=== PATIENT | female | born 1975 | race Caucasian/White ===

== ENCOUNTER 2021-12-05 10:36 | Outpatient (CLI) | payer BC, OTHER, SELFPAY ==
[2021-12-05 10:56] LABS: Basophils Absolute Auto 0.02 K/uL (0.00-0.30); Basophils Percent Auto 0.2 % (0.0-3.0); Eosinophils Absolute Auto 0.18 K/uL (0.00-0.50); Eosinophils Percent Auto 2.2 % (0.0-7.0); Hematocrit 37.3 % (33.0-51.0); Hemoglobin* 12.3 gm/dL (12.0-16.0); Lymphocytes Absolute Auto 2.34 K/uL (0.90-2.90); Lymphocytes Percent Auto 28.4 % (20-44); Mean Corpuscular HGB Conc 33 gm/dL (32-36); Mean Corpuscular Hemoglobin 30 pg (26-34); Mean Corpuscular Volume 90 fL (80-100); Monocytes Absolute Auto 0.48 K/UL (0.00-0.90); Monocytes Percent Auto 5.8 % (0.0-11.0); Neutrophils Absolute Auto 5.23 K/uL (1.7-7.0); Neutrophils Percent Auto 63.4 % (42.0-72.0); Platelet Count* 410 K/uL (140-440); Red Blood Count 4.14 m/uL (4.00-5.20); White Blood Count* 8.25 K/uL (4.50-11.00)
[2021-12-05 10:58] LABS: Slide Review Reflex No
[2021-12-05 16:49] LABS: Chloride* 103 mmol/L (96-114)
[2021-12-05 16:50] LABS: Potassium* 3.9 mmol/L (3.6-5.1); Sodium* 137 mmol/L (135-149)
[2021-12-05 16:52] LABS: Carbon Dioxide* 26 mmol/L (20-32); Creatinine* 0.7 mg/dL (0.5-1.5); Estimated Glomerular Filt Rate 109 ml/min
[2021-12-05 16:53] LABS: Blood Urea Nitrogen* 19 mg/dL (5-24); Calcium* 10.3 mg/dL (8.4-10.6); Glucose* 98 mg/dL (60-115)
== END 2021-12-05 10:37 | disposition home or self-care (01) ==
LOC: LKVREF 10:37
PROVIDERS: PCP Physician Assistant Medical; Visit Provider Family Medicine
DX: I10 Essential (primary) hypertension (principal)
CPT/HCPCS: 80048; 85025

== ENCOUNTER 2022-04-06 06:15 | Outpatient (CLI) | payer BC, OTHER, SELFPAY | END 2022-04-06 06:16 | disposition home or self-care (01) | PROVIDERS: PCP Physician Assistant Medical; Visit Provider Internal Medicine | DX: Z12.11 Encounter for screening for malignant neoplasm of colon (principal) | CPT/HCPCS: 45378; J2250; J3010 ==

== ENCOUNTER 2022-06-13 14:55 | Outpatient (CLI) | payer BC, OTHER, SELFPAY ==
--- NOTE | 2022-06-13 15:20 | CRLHL7_ITS ---
For Patients: As a result of the Century Cures Act, medical imaging exams and procedure reports are released immediately into your electronic medical record. You may view this report before your referring provider. If you have questions, please contact your health care provider. BILATERAL SCREENING MAMMOGRAM WITH COMPUTER-AIDED DETECTION AND TOMOSYNTHESIS TECHNIQUE: CC and MLO views were obtained. These mammographic images have been obtained using full-field digital technique. These mammographic images were interpreted with the benefit of computer-aided detection. Breast Tomosynthesis was used in this interpretation. COMPARISON FILM: 01/05/21, 12/24/19, 12/17/19. FINDINGS: There are scattered areas of fibroglandular density IMPRESSION: There is no radiographic evidence for malignancy. ASSESSMENT: BI-RADS Category 1: Negative RECOMMENDATION: Routine screening mammogram in 1 year. A lay language report of this examination will be provided to the patient. Vivek Desir M.D. Diagnostic Radiologist [email or web address] REESE/Dictated by: Vivek Desir MD @ 06/14/2022 1:36:00 PM (Electronically Signed)
== END 2022-06-13 14:56 | disposition home or self-care (01) ==
LOC: MAMMO 14:56
PROVIDERS: Visit Provider Physician Assistant
DX: Z12.31 Encounter for screening mammogram for malignant neoplasm of breast (principal)
CPT/HCPCS: 77063; 77067

== ENCOUNTER 2022-12-14 07:58 | Outpatient (CLI) | payer BC, OTHER, SELFPAY | END 2022-12-14 07:59 | disposition home or self-care (01) | PROVIDERS: Visit Provider Family Medicine | DX: I10 Essential (primary) hypertension (principal); Z13.6 Encounter for screening for cardiovascular disorders | CPT/HCPCS: 80053; 80061 ==

== ENCOUNTER 2023-08-19 09:00 | Outpatient (RCR) | payer BC, OTHER, SELFPAY | END 2023-10-24 08:38 | disposition home or self-care (01) | PROVIDERS: PCP Family Medicine; Visit Provider Family Medicine | DX: M54.9 Dorsalgia, unspecified (principal); R53.1 Weakness; Z51.89 Encounter for other specified aftercare | CPT/HCPCS: 97110; 97140; 97161 ==

== ENCOUNTER 2023-12-12 09:45 | Outpatient (CLI) | payer BC, OTHER, SELFPAY ==
--- OUTSIDE RECORDS SUMMARY | 2023-12-12 09:48 | XMS_ITS | Clinical Summary ---
Author Organization [employer] [facility] Address [place], [place] [address] Care Team Providers Care Multimedia Manager Name Role Phone Health, Family Primary Care Provider Unavailabl e Allergies No known active allergies Medications Medication Sig Dispensed Refills Start Date End Date Status lisinopriL (PRINIVIL; ZESTRIL) 10 mg tablet Take 1 tablet by mouth once daily. 0 03/14/2020 Active levonorgestrel intrauterine device (MIRENA) 20 mcg/24 hours (5 yrs) 52 mg IUD Inject 1 Each intrauterine. Active Family History Medical History Relation Name Comments Heart Disease Maternal Grandmother Relation Name Status Comments Maternal Grandmother Social History Tobacco Use Types Packs/Day Years Used Date Smoking Tobacco: Never Smokeless Tobacco: Never Alcohol Use Standard Drinks/Week Comments Yes 0 (1 standard drink = 0.6 oz pur e alcohol) occ drink Social Connections Answer Date Recorded Frequency of Communication with Friends and Fami ly Not on file 05/06/2021 Financial Resource Strain Answer Date R ecorded Difficulty of Paying Living Expenses Not on file 05/06/2021 Difficulty of Paying Living Expenses Not on file 05/06/2021 Sex and Gender Information Value Date Recorded Sex Assigned at Not on file Gender Identity Not on file Sexual Orientation Not on file Obstetrics History Last Filed Vital Signs Vital Sign Reading Time Taken Comments Blood Pressure 138/96 04/14/2020 2:50 PM RADIOLOGY ASST Pulse 90 04/14/2020 2:50 PM RADIOLOGY ASST Temperature 36.1 ??C (97 ??F) 04/14/2020 2:50 PM RADIOLOGY ASST Respiratory Rate - - Oxygen Saturation 100% 04/14/2020 2:50 PM RADIOLOGY ASST Inhaled Oxygen Concentration - - Weight 71.8 kg (158 lb 6.4 oz) 04/14/2020 2:50 P M RADIOLOGY ASST Height 167.6 cm (5' 6) 04/14/2020 2:50 PM RADIOLOGY ASST Body Mass Index 25.57 04/14/2020 2:50 PM RADIOLOGY ASST Plan of Treatment Health Maintenance Due Date Last Done Comments Tdap 12/31/1987 Depression screening for age 12+ 1988 HIV for age 15-65 12/31/1991 Hepatitis C screening for ag e 18-79 1994 Tetanus booster 1996 BMI (ht and wt on same day) for age 18+ 04/14/2021 04/14/2020 Colonoscopy through age 75 2021 Lipids for age 45-75 2021 Mammogram for age 45-75 2021 COVID-19 vaccine series (2022- season) 2023 Influenza for age 9-49 01/05/2024 Pap test for age 21-65 01/14/2026 , 01/14/2023 Pneumococcal series for age 6-64 Aged Out No longer eligible b ased on patient's age to complete this topic Procedures Procedure Name Priority Date/Time Associated Diagnosis Comments HPV THIN PREP Routine 01/14/2023 9:30 AM CDT from Last 3 Months or Most Recently Relevant to Health Maintenance Results * HPV HIGH RISK (01/14/2023 9:30 AM CDT) TYPE 16 Negative Negative 01/16/2023 5:39 PM CDT [facility] TYPE 18 Negative Negative 01/16/2023 5:39 PM CDT [facility] TR[facility] LAB[facility]ATORY OTHER HIGH RISK TYPES Negative Negative 01/16/2023 5:39 PM CDT [facility]ORY Other (Cervical) 01/14/2023 9:30 AM CDT 01/15/2023 10:11 [facility] 01/16/2023 5:39 PM CDT HPV types 16, 18, 31, 33, 35, 39, 45, 51, 52, 56, 58, 59, 66 and 68 DNA were undetectable or below the pre-set threshold. Methodology: Josue Aretha 4800 HPV Test August Josy CONNER [facility]-CENTRAL LABORATORY [address] [place] [address], from Last 3 Months or Most Recently Relevant to Health Maintenance Care Teams Multimedia Manager Relationship Specialty Start Date End Date Health, Family PCP - General 12/19/12
--- OUTSIDE RECORDS SUMMARY | 2023-12-12 09:48 | XMS_ITS | Referral Summary ---
Author Organization [facility] Address [address] [place] [address] Care Team Providers Care Pilot Plant Operator Helper Name Role Phone Erickson Finney MD Primary Care Provider [phone] Social History Tobacco Use Types Packs/Day Years Used Date Smoking Tobacco: Never Assessed Adolescent Education Answer Date Record ed Getting School Help Needed Not on file 01/26 Sex and Gender Information Value Date Recorded Sex Assigned at Not on file Gender Identity Not on file Sexual Orientation Not on file Plan of Treatment Not on file Procedures Procedure Name Priority Date/Time Associated Diagnosis Comments MA SCREENING BILATERAL W/ JOÃO Routine 01/05/2021 10:19 AM CDT Visit for screening mammogram from Last 3 Months or Most Recently Relevant to Health Maintenance Results * MA Screen Bilateral w/João (01/05/2021 10:19 AM CDT) Anatomical Region Laterality Modality Breast Bilateral Mammography Narrative 01/05/2021 4:23 PM CDT BILATERAL FULL FIELD DIGITAL SCREENING MAMMOGRAM WITH TOMOSYNTHESIS Performed on: 01/05/21 Compared to: 12/24/2019, 12/17/2019, and 08/08/2017 Technique: ??This study was evaluated with the assistance of Computer-Aided Detection. ??Breast Tomosynthesis was used in interpretation. Findings: The breasts have scattered areas of fibroglandular density. ?? There is no radiographic evidence of malignancy. IMPRESSION: ACR BI-RADS Category 1: Negative RECOMMENDED FOLLOW-UP: Annual routine screening mammogram The results and recommendations of this examination will be communicated to the patient. Radiology Non-Fv Credentialed Provider I MG MAMMOGRAPHY ORDERABLES from Last 3 Months or Most Recently Relevant to Health Maintenance Care Teams Pilot Plant Operator Helper Relationship Specialty Start Date End Date Erickson Finney MD PCP - General Family Medicine 01/05/21
--- OUTSIDE RECORDS SUMMARY | 2023-12-12 09:48 | XMS_ITS | Clinical Summary ---
Author Organization [facility] Address [address] [place] [address] Care Team Providers Care Litharge Mill Operator Name Role Phone Erickson Finney MD Primary Care Provider [phone] Social History Tobacco Use Types Packs/Day Years Used Date Smoking Tobacco: Never Assessed Adolescent Education Answer Date Record ed Getting School Help Needed Not on file 01/26 Sex and Gender Information Value Date Recorded Sex Assigned at Not on file Gender Identity Not on file Sexual Orientation Not on file Plan of Treatment Health Maintenance Due Date Last Done Comments ADVANCE CARE PLANNING 1976 ANNUAL REVIEW OF HM ORDERS 1976 CT COLONOGRAPHY 1976 FIT 1976 FLEX SIG 1976 GLUCOSE 1976 YEARLY PREVENTIVE VISIT 1976 sDNA (Cologuard) 1976 COLONOSCOPY 1986 COLORECTAL CANCER SCREENING 1986 HIV SCREENING 12/31/1991 HEPATITIS C SCREENING 1994 HEPATITIS B IMMUNIZATION (1 of 3 - 19+ 3-dose series) 12/31/1995 PAP 1997 LIPID 2016 DTAP/TDAP/TD IMMUNIZATION (1 - Tdap) 12/09/2018 12/08/2018 COVID-19 Vaccine (3 - 2022- season) 2023 08/26/2020, 08/06/2020 MAMMO SCREENING 01/05/2023 01/05/2021, 12/05, 12/17/2019, Additional history exists PHQ-2 (once per calendar year) 2023 INFLUENZA VACCINE (#1) 2024 , 03/05/2019, 03/18/2012, Additional history exists HPV IMMUNIZATION Aged Out No longer e ligible based on patient's age to complete this topic IPV IMMUNIZATION Aged Out No longer e ligible based on patient's age to complete this topic MENINGITIS IMMUNIZATION Aged Out No l onger eligible based on patient's age to complete this topic Pneumococcal Vaccine: Pediatrics (0 to 5 Years) and At-Risk Patients (6 to 64 Years) Aged Out No longer eligible based on patient's age to complete this topic RSV MONOCLONAL ANTIBODY Aged Out No l onger eligible based on patient's age to complete this topic [...] Recently Relevant to Health Maintenance Care Teams Litharge Mill Operator Relationship Specialty Start Date End Date Erickosn Finney MD PCP - General Family Medicine 01/05/21
--- OUTSIDE RECORDS SUMMARY | 2023-12-12 09:48 | XMS_ITS | Clinical Summary ---
Author Organization [facility] Address [address] [place] [address] Phone [email or web address] Care Team Providers Care Board Mill Supervisor Name Role Phone Unavailable Primary Care Provider Unavailabl e Encounters Date Type Department Care Team Description 12/04/2023 Claims Summary [facility] [address] [place] [address] Provider, Claims Summary MD Salo from Last 3 Months Social History Tobacco Use Types Packs/Day Years Used Date Smoking Tobacco: Never Assessed Sex and Gender Information Value Date Recorded Sex Assigned at Not on file Gender Identity Not on file Sexual Orientation Not on file Plan of Treatment Not on file
--- OUTSIDE RECORDS SUMMARY | 2023-12-12 09:48 | XMS_ITS | Clinical Summary ---
Author Organization [facility] Address [address], [place] [address] Care Team Providers Care Coil Winder Repair Name Role Phone Pcp, Pt Declines Primary Care Provider [phone] Source Comments You are receiving this document as you are listed as the primary care provider,follow-up provider, or the patient has been referred to you for consultation.This is in compliance with the Medicare and[facility] EHR Incentive Program,which states Providers who transition their patient to another setting of careor provider of care or refers their patient to another provider of care shouldprovide summary care record for each transition of care or referral. [facility] Allergies No known active allergies Medications Medication Sig Dispensed Refills Start Date End Date Status lisinopril (ZESTRIL) 5 MG tablet Take 10 mg by mouth daily. 3 07/31/2016 Active levonorgestrel (MIRENA) 20 MCG/24HR IUD 1 Each by Intrauterine route once. Active minocycline (MINOCIN) 50 MG capsuleIndications :Perioral dermatitis Take one capsule twice per day for 14 days. 28 Capsule 5 08/02/2021 Active metroNIDAZOLE (METROCREAM) 0.75 % creamIndications:P erioral dermatitis Apply to the face twice per day. 45 g 08/02/2021 Active Active Problems No known active problems Social History Tobacco Use Types Packs/Day Years Used Date Smoking Tobacco: Never Smokeless Tobacco: Never Sex and Gender Information Value Date Recorded Sex Assigned at Not on file Gender Identity Not on file Sexual Orientation Not on file Last Filed Vital Signs Vital Sign Reading Time Taken Comments Blood Pressure 147/91 10/31/2018 11:10 AM CDT Pulse 87 10/31/2018 11:10 AM CDT Temperature - - Respiratory Rate - - Oxygen Saturation - - Inhaled Oxygen Concentration - - Weight - - Height - - Body Mass Index - - Plan of Treatment Health Maintenance Due Date Last Done Comments Cervical Cancer Screening Due 1976 Colon Cancer Screening Plan Due 1976 Hep C Screening (Preventive Services) 1976 Mammogram 1976 HIV Screening (Preventive Services) 1992 Adult Preventive Visit 1994 DTaP/Tdap/Td (1 - Tdap) 12/31/1995 HepB (1) 12/31/1995 Cholesterol 2021 COVID-19 Vaccine (1 - 2022-2 4 season) 2023 Influenza (#1) 2024 01/05/2020, 03/18/2012, 02/12/2011 Zoster/Shingles (1 of 2) 2026 HepA Aged Out No longer eligi ble based on patient's age to complete this topic Hib Aged Out No longer eligi ble based on patient's age to complete this topic IPV (Polio) Aged Out No longer eligi ble based on patient's age to complete this topic MCV4 Aged Out No longer eligi ble based on patient's age to complete this topic Pneumococcal Aged Out No longer eligi ble based on patient's age to complete this topic Care Teams Coil Winder Repair Relationship Specialty Start Date End Date Pcp, [place] [address] PCP - General 05/31/15
--- OUTSIDE RECORDS SUMMARY | 2023-12-12 09:48 | XMS_ITS | Encounter Summary ---
Author Organization [facility] Address [address] [place] [address] Phone [email or web address] [email or web address] Care Team Providers Care Senior Buyer Planner Name Role Phone Unavailable Primary Care Provider Unavailabl e Encounter Details Date Type Department Care Team (Late st Contact Info) Description 12/04/2023 Claims Summary [facility] [address] [place] [address] Provider, Claims Summary External, [address] [place] [address] Social History Tobacco Use Types Packs/Day Years Used Date Smoking Tobacco: Never Assessed Sex and Gender Information Value Date Recorded Sex Assigned at Not on file Gender Identity Not on file Sexual Orientation Not on file documented as of this encounter Plan of Treatment Not on file documented as of this encounter Visit Diagnoses Not on filedocumented in this encounter
== END 2023-12-12 09:46 | disposition home or self-care (01) ==
PROVIDERS: PCP Family Medicine; Visit Provider Family Medicine
DX: I10 Essential (primary) hypertension (principal); E78.00 Pure hypercholesterolemia, unspecified
CPT/HCPCS: 80053; 80061

== ENCOUNTER 2023-12-12 14:50 | Outpatient (CLI) | payer BC, OTHER, SELFPAY ==
--- OUTSIDE RECORDS SUMMARY | 2023-12-12 14:53 | XMS_ITS | Clinical Summary ---
Author Organization [facility] Address [address] [place] [address] Phone [email or web address] [email or web address] Care Team Providers Care Social Welfare Administrator Name Role Phone Unavailable Primary Care Provider Unavailabl e Encounters Date Type Department Care Team Description 12/04/2023 Claims Summary [facility] [address] [place] [address] Provider, Claims Summary MD Salo from Last 3 Months Social History Tobacco Use Types Packs/Day Years Used Date Smoking Tobacco: Never Assessed Sex and Gender Information Value Date Recorded Sex Assigned at Not on file Gender Identity Not on file Sexual Orientation Not on file Plan of Treatment Not on file
--- OUTSIDE RECORDS SUMMARY | 2023-12-12 14:53 | XMS_ITS | Clinical Summary ---
Author Organization [facility] Address [address] [place] [address] Care Team Providers Care Cna Caregiver Name Role Phone Erickson Finney MD Primary Care Provider [phone] Social History Tobacco Use Types Packs/Day Years [...] Recently Relevant to Health Maintenance Care Teams Cna Caregiver Relationship Specialty Start Date End Date Erickson Finney MD PCP - General Family Medicine 01/05/21
--- OUTSIDE RECORDS SUMMARY | 2023-12-12 14:53 | XMS_ITS | Encounter Summary ---
Author Organization [facility] Address [address] [place] [address] Phone [email or web address] [email or web address] Care Team Providers Care Spd Tech Name Role Phone Unavailable Primary Care Provider Unavailabl e Encounter Details Date Type Department Care Team (Late st Contact Info) Description 12/04/2023 Claims Summary [facility] [address] [place] [address] Provider, Claims Summary External, [address] [place] [address] Social History Tobacco Use Types Packs/Day [...]
--- OUTSIDE RECORDS SUMMARY | 2023-12-12 14:53 | XMS_ITS | Clinical Summary ---
Author Organization [facility] Address [address], [place] [address] Care Team Providers Care Chief Deputy Clerk/Bailiff Name Role Phone Pcp, Pt Declines Primary Care Provider Source Comments You are receiving this document as you are listed as the primary care provider,follow-up provider, or the patient has been referred to you for consultation.This is in compliance with the Medicare and[facility] EHR Incentive Program,which states Providers who transition their patient to another setting of careor provider of care or refers their patient to another provider of care shouldprovide summary care record for each transition of care or referral. [facility] Allergies No known active allergies Medications [...] age to complete this topic Care Teams Chief Deputy Clerk/Bailiff Relationship Specialty Start Date End Date Pcp, [place] [address] PCP - General 05/31/15
--- OUTSIDE RECORDS SUMMARY | 2023-12-12 14:53 | XMS_ITS | Referral Summary ---
Author Organization [facility] Address [address] [place] [address] Care Team Providers Care Adobe Maker Name Role Phone Erickson Finney MD Primary Care Provider [phone] Social History Tobacco Use Types Packs/Day Years [...] Recently Relevant to Health Maintenance Care Teams Adobe Maker Relationship Specialty Start Date End Date Erickson Finney MD PCP - General Family Medicine 01/05/21
--- OUTSIDE RECORDS SUMMARY | 2023-12-12 14:53 | XMS_ITS | Clinical Summary ---
Author Organization [employer] [facility] Address [place], [place] [address] Care Team Providers Care Manager Knowledge Name Role Phone Health, Family Primary Care [...] Comments Blood Pressure 138/96 04/14/2020 2:50 PM DETAILER FURNITURE Pulse 90 04/14/2020 2:50 PM DETAILER FURNITURE Temperature 36.1 ??C (97 ??F) 04/14/2020 2:50 PM DETAILER FURNITURE Respiratory Rate - - Oxygen Saturation 100% 04/14/2020 2:50 PM DETAILER FURNITURE Inhaled Oxygen Concentration - - Weight 71.8 kg (158 lb 6.4 oz) 04/14/2020 2:50 P M DETAILER FURNITURE Height 167.6 cm (5' 6) 04/14/2020 2:50 PM DETAILER FURNITURE Body Mass Index 25.57 04/14/2020 2:50 PM DETAILER FURNITURE Plan of Treatment Health Maintenance Due Date [...] 16 Negative Negative 01/16/2023 5:39 PM CDT [facility] TYPE 18 Negative Negative 01/16/2023 5:[address] [facility] TRAL LABORATORY OTHER HIGH RISK TYPES Negative Negative 01/16/2023 5:[address] [facility] TRAL LAB[facility]ATORY Other (Cervical) 01/14/2023 9:30 AM CDT 01/15/2023 10:11 AM [facility] 01/16/2023 5:39 PM CDT HPV types 16, 18, 31, 33, 35, 39, 45, 51, 52, 56, 58, 59, 66 and 68 DNA were undetectable or below the pre-set threshold. Methodology: Josue Aretha 4800 HPV Test August Josy [facility]NER MICROBIOLOGY [facility]-CENTRAL LABORATORY [address] [place] [address], from Last 3 Months or Most Recently Relevant to Health Maintenance Care Teams Manager Knowledge Relationship Specialty Start Date End Date Health, Family PCP - General 12/19/12
--- NOTE | 2023-12-12 15:20 | CRLHL7_ITS ---
For Patients: As a result of the Cures Act, medical imaging exams and procedure reports are released immediately into your electronic medical record. You may view this report before your referring provider. If you have questions, please contact your health care provider. BILATERAL SCREENING MAMMOGRAM WITH COMPUTER-AIDED DETECTION AND TOMOSYNTHESIS TECHNIQUE: CC and MLO views were obtained. These mammographic images have been obtained using full-field digital technique. These mammographic images were interpreted with the benefit of computer-aided detection. Breast Tomosynthesis was used in this interpretation. COMPARISON FILM: 09/10/22, 01/05/21, 12/17/19. FINDINGS: There are scattered areas of fibroglandular density IMPRESSION: There is no radiographic evidence for malignancy. ASSESSMENT: BI-RADS Category 1: Negative RECOMMENDATION: Routine screening mammogram in 1 year. A lay language report of this examination will be provided to the patient. Vivek Desir M.D. Diagnostic Radiologist [email or web address] STEVEN/mu / bM/Dictated by: Vivek Desir MD @ 12/13/2023 9:32:00 AM (Electronically Signed)
== END 2023-12-12 14:51 | disposition home or self-care (01) ==
LOC: MAMMO 14:51
PROVIDERS: PCP Family Medicine; Visit Provider Physician Assistant
DX: Z12.31 Encounter for screening mammogram for malignant neoplasm of breast (principal)
CPT/HCPCS: 77063; 77067

== ENCOUNTER 2024-03-17 07:58 | Outpatient (CLI) | payer BC, OTHER, SELFPAY ==
--- OUTSIDE RECORDS SUMMARY | 2024-03-19 12:17 | XMS_ITS | Encounter Summary ---
Author Organization [facility] Address [address] [place] [address] Phone [email or web address] [email or web address] Care Team Providers Care Wire Roller Name Role Phone Unavailable Primary Care Provider Unavailabl e Encounter Details Date Type Department Care Team (Late st Contact Info) Description 12/04/2023 Claims Summary [facility] [address] [place] [address] Provider, Claims Summary External, [address] [place] [address] Social History Tobacco Use Types Packs/Day Years Used Date Smoking Tobacco: Never Assessed Comments Unknown Sex and Gender Information Value Date Recorded Sex Assigned at Not on file Legal Sex Female 12:07 PM COMMERCIAL ACCOUNT MANAGER Gender Identity Not on file Sexual Orientation Not on file documented as of this encounter Plan of Treatment Not on file documented as of this encounter Visit Diagnoses Not on filedocumented in this encounter
--- OUTSIDE RECORDS SUMMARY | 2024-03-19 12:17 | XMS_ITS | Patient Health Record ---
Author Organization [facility] Address [address] [place] [address] Care Team Providers Care Replenishment Merchandising Associate Name Role Phone KarleeAdelaide encarnacion Primary Care Provider [phone] Allergies No Known Allergies Reason For Referral No Information Medications Medication SIG (Take, Route, Fr equency, Duration) Notes Start Date End Date Status Mirena (52 MG) Activ e Lisinopril 10 MG Orally Act bayron Social History Tobacco Use: Social History Observation Description Date Details (start date - stop date) Never Smoker NA - NA Tobacco Use/Smoking Question Answer Notes Are you a nonsmoker Problems Problem Type SNOMED Code ICD Code Onset Dates Problem Status W/U Status Risk Notes Problem Hyperlipidemia (88227495) Hyperlipidemia (272.2) 006 Active confirmed No medications required Problem Hypertension (16054384) Hypertension (401.1) Active confirmed Plan Of Treatment No Information Insurance Providers Payer Name Payer Address Payer Phone Subscriber Number Group Number Insured Name Patient Relationship to Insured Coverage Start Date Coverage End Date [employer]BS - (Client Bill) [address] [place] [address] [id number] Ghislaine Banegas Self - patient is the insured [facility] [address] [place], [place] [id number] Ghislaine Banegas Self - patient is the insured Medical (General) History Medical History History ICD Code hyperlipidemia hypertension Surgical History Surgery Date(Month/Year) cystectomy IUD insert; Mirena 08/08/2017
--- OUTSIDE RECORDS SUMMARY | 2024-03-19 12:17 | XMS_ITS | Clinical Summary ---
Author Organization [facility] [employer] Address [place], [place] [address] Care Team Providers Care Electronic Components Assembler Name Role Phone Health, Family Primary Care [...] Comments Blood Pressure 138/96 04/14/2020 2:50 PM MUCKER OPERATOR Pulse 90 04/14/2020 2:50 PM MUCKER OPERATOR Temperature 36.1 ??C (97 ??F) 04/14/2020 2:50 PM MUCKER OPERATOR Respiratory Rate - - Oxygen Saturation 100% 04/14/2020 2:50 PM MUCKER OPERATOR Inhaled Oxygen Concentration - - Weight 71.8 kg (158 lb 6.4 oz) 04/14/2020 2:50 P M MUCKER OPERATOR Height 167.6 cm (5' 6) 04/14/2020 2:50 PM MUCKER OPERATOR Body Mass Index 25.57 04/14/2020 2:50 PM MUCKER OPERATOR Plan of Treatment Health Maintenance Due Date [...] for age 45-75 2021 COVID-19 vaccine series (2023- season) 2024 Influenza for age 9-49 01/05/2024 Pap test for age 21-65 01/14/2026 , 01/14/2023 Pneumococcal series for age 6-64 Aged Out No longer eligible b ased on patient's age to complete this topic Procedures Procedure Name Priority Date/Time Associated Diagnosis Comments HPV HIGH RISK Routine 01/14/2023 9:30 AM CDT from Last 3 Months or Most Recently Relevant to Health Maintenance Results * HPV HIGH RISK (01/14/2023 9:30 AM CDT) TYPE 16 Negative Negative 01/16/2023 5:39 PM CDT [facility] TYPE 18 Negative Negative 01/16/2023 5:39 PM CDT [facility] OTHER HIGH RISK TYPES Negative Negative 01/16/2023 5:39 PM CDT [facility] Other (Cervical) 01/14/2023 9:30 AM CDT 01/15/2023 10:11 AM CDT [facility] - 01/16/2023 5:39 PM CDT HPV types 16, 18, 31, 33, 35, 39, 45, 51, 52, 56, 58, 59, 66 and 68 DNA were undetectable or below the pre-set threshold. Methodology: Josue Aretha 4800 HPV Test August Josy [facility]NER [facility]-CENTRAL LABORATORY [address] [place] [address], from Last 3 Months or Most Recently Relevant to Health Maintenance Care Teams Electronic Components Assembler Relationship Specialty Start Date End Date Health, Family PCP - General 12/19/12
--- OUTSIDE RECORDS SUMMARY | 2024-03-19 12:17 | XMS_ITS | Encounter Summary ---
Author Organization [facility] Address [address] [place] [address] Phone [email or web address] Care Team Providers Care Cocoa Milling Machine Operator Name Role Phone Unavailable Primary Care Provider Unavailabl e Encounter Details Date Type Department Care Team (Late st Contact Info) Description 02/13/2024 Claims Summary [facility] [address] [place] [address] Provider, Claims Summary External, [address] [place] [address] Social History Tobacco Use Types Packs/Day Years Used Date Smoking Tobacco: Never Assessed Comments Unknown Sex and Gender Information Value Date Recorded Sex Assigned at Not on file Legal Sex Female 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
--- OUTSIDE RECORDS SUMMARY | 2024-03-19 12:17 | XMS_ITS | Encounter Summary ---
Author Organization [facility] Address [address] [place] [address] Phone [email or web address] Care Team Providers Care Core Composer Machine Tender Name Role Phone Unavailable Primary Care Provider Unavailabl e Encounter Details Date Type Department Care Team (Late st Contact Info) Description 01/15/2024 Claims Summary [facility] [address] [place] [address] Provider, Claims Summary External, [address] [place] [address] Social History Tobacco Use Types Packs/Day Years Used Date Smoking Tobacco: Never Assessed Comments Unknown Sex and Gender Information Value Date Recorded Sex Assigned at Not on file Legal Sex Female 12:07 PM INCIDENT COORDINATOR Gender Identity Not on file Sexual Orientation Not on file documented as of this encounter Plan of Treatment Not on file documented as of this encounter Visit Diagnoses Not on filedocumented in this encounter
--- OUTSIDE RECORDS SUMMARY | 2024-03-19 12:17 | XMS_ITS | Clinical Summary ---
Author Organization [facility] Address [address] [place] [address] Care Team Providers Care Tip Cementer Name Role Phone Erickson Finney MD Primary Care Provider [phone] Social History Tobacco Use Types Packs/Day Years Used Date Smoking Tobacco: Never Assessed Adolescent Education Answer Date Record ed Getting School Help Needed Not on file 01/26 Comments Unknown Sex and Gender Information Value Date Recorded Sex Assigned at Not on file Legal Sex Female 8:42 AM CDT Gender Identity Not on file Sexual Orientation Not on file Plan of Treatment Not on file Insurance [facility] [employer] [facility] Care Teams Tip Cementer Relationship Specialty Start Date End Date Erickson Finney MD FOR[facility] N[facility]ED [facility] [address] [place] [address] PCP - General Family Medicine 01/05/21
--- OUTSIDE RECORDS SUMMARY | 2024-03-19 12:17 | XMS_ITS | Encounter Summary ---
Author Organization [facility] Address [address] [place] [address] Phone [email or web address] Care Team Providers Care Casino Shift Manager Name Role Phone Unavailable Primary Care Provider Unavailabl e Encounter Details Date Type Department Care Team (Late st Contact Info) Description 03/18/2024 Claims Summary [facility] [address] [place] [address] Provider, Claims Summary External, [address] [place] [address] Social History Tobacco Use Types Packs/Day Years Used Date Smoking Tobacco: Never Assessed Stress Answer Date Recorded Stress in your Life Not on file 03/14/2024 Dealing with Stress 3 03/14/2024 Comments Unknown Sex and Gender Information Value Date Recorded Sex Assigned at Not on file Legal Sex Female 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
--- OUTSIDE RECORDS SUMMARY | 2024-03-19 12:17 | XMS_ITS | Clinical Summary ---
Author Organization [facility] Address [address] [place] [address] Phone [email or web address] Care Team Providers Care Receiving Team Member Name Role Phone Unavailable Primary Care Provider Unavailabl e Encounters Date Type Department Care Team Description 03/18/2024 Claims Summary [facility] [address] [facility] [place] [address] Provider, Claims Summary MD Salo 02/13/2024 Claims Summary [facility] [address] 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
--- OUTSIDE RECORDS SUMMARY | 2024-03-19 12:17 | XMS_ITS | Clinical Summary ---
Author Organization [facility] Address [address], [place] [address] Care Team Providers Care Compressor Repairer Name Role Phone Pcp, Pt Declines Primary Care Provider [phone] Source Comments You are receiving this document as you are listed as the primary care provider,follow-up provider, or the patient has been referred to you for consultation.This is in compliance with the Medicare and[facility] EHR Incentive Program,which states Providers who transition their patient to another setting of careor provider of care or refers their patient to another provider of care shouldprovide summary care record for each transition of care or referral. [facility] Allergies No known active allergies Medications Medication [...] 12/31/1995 Cholesterol 2021 COVID-19 Vaccine (1 - 2023-2 5 season) 2024 Influenza (#1) 2024 01/05/2020, 03/18/2012, 02/12/2011 Zoster/Shingles (1 of 2) 2026 HepA Aged Out No longer eligi ble based on patient's age to complete this topic Hib Aged Out No longer eligi ble based on patient's age to complete this topic IPV (Polio) Aged Out No longer eligi ble based on patient's age to complete this topic RSV Aged Out No longer eligi ble based on patient's age to complete this topic MCV4 Aged Out No longer eligi ble based on patient's age to complete this topic Pneumococcal Aged Out No longer eligi ble based on patient's age to complete this topic Care Teams Compressor Repairer Relationship Specialty Start Date End Date Pcp, [place] [address] PCP - General 05/31/15
--- OUTSIDE RECORDS SUMMARY | 2024-03-19 12:17 | XMS_ITS | Referral Summary ---
Author Organization [facility] Address [address] [place] [address] Care Team Providers Care Machinist Automotive Name Role Phone Erickson Finney MD Primary Care Provider [phone] Social History Tobacco Use Types Packs/Day Years [...] Plan of Treatment Not on file Insurance [facility] [employer] [facility] Care Teams Machinist Automotive Relationship Specialty Start Date End Date Erickson Finney MD [facility] [address] [place] [address] PCP - General Family Medicine 01/05/21
== END 2024-03-17 07:59 | disposition home or self-care (01) ==
LOC: NFLDREF 03-19 12:15
PROVIDERS: PCP Family Medicine; Visit Provider Family Medicine
DX: E83.52 Hypercalcemia (principal); E78.00 Pure hypercholesterolemia, unspecified
CPT/HCPCS: 80061; 80076; 82310

== ENCOUNTER 2025-02-08 10:14 | Outpatient (CLI) | payer BC, OTHER, SELFPAY ==
--- NOTE | 2025-02-08 10:15 | CRLHL7_ITS ---
For Patients: As a result of the Century Cures Act, medical imaging exams and procedure reports are released immediately into your electronic medical record. You may view this report before your referring provider. If you have questions, please contact your health care provider. INDICATION: BILATERAL SCREENING MAMMOGRAM, ASYMPTOMATIC 49 Y/O FEMALE COMPARISON: 12/12/2023, 06/13/2022, 12/17/2019 TECHNIQUE: Digital mammogram in CC and MLO projections including computer-aided detection (CAD) and tomosynthesis. BREAST COMPOSITION: There are scattered areas of fibroglandular density. FINDINGS: No suspicious findings. ASSESSMENT: BI-RADS 1 Negative RECOMMENDATION: Annual screening mammogram. A lay language report of this examination will be provided to the patient. Dictated by: Vivek Desir MD @ 02/09/2025 09:30:20 (Electronically Signed)
== END 2025-02-08 10:15 | disposition home or self-care (01) ==
LOC: MAMMO 10:15
PROVIDERS: PCP Family Medicine; Visit Provider Family Medicine
DX: Z12.31 Encounter for screening mammogram for malignant neoplasm of breast (principal)
CPT/HCPCS: 77063; 77067

== ENCOUNTER 2025-03-16 07:57 | Outpatient (CLI) | payer BC, OTHER, SELFPAY | END 2025-03-16 07:58 | disposition home or self-care (01) | LOC: NFLDREF 03-19 04:25 | PROVIDERS: PCP Family Medicine; Referring Provider Family Medicine; Visit Provider Family Medicine | DX: E78.00 Pure hypercholesterolemia, unspecified (principal); I10 Essential (primary) hypertension | CPT/HCPCS: 80053; 80061 ==